=== PATIENT | female | born 1955 | race Two or more races ===

== ENCOUNTER 2020-01-12 16:26 | Emergency (ER) | payer OTHER, MEDICARE ==
[2020-01-12] MEDS ORDERED: IBUPROFEN 600 MG TABLET PO ONE (17:56)
[2020-01-12] MEDS ORDERED: ACETAMINOPHEN 325 MG TABLET PO ONE (17:56)
[2020-01-12] MEDS ORDERED: DIAZEPAM 5 MG TABLET PO ONE (17:56)
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
[2020-01-12 19:28] VITALS: BP 114/66
== END 2020-01-12 19:27 | disposition home or self-care (01) ==
LOC: ER 16:26
DX: S20.211A Contusion of right front wall of thorax, initial encounter (principal); M54.9 Dorsalgia, unspecified; M54.2 Cervicalgia; R07.81 Pleurodynia; R07.9 Chest pain, unspecified; M43.6 Torticollis; V87.7XXA Person injured in collision between other specified motor vehicles (traffic), initial encounter; Z79.899 Other long term (current) drug therapy
CPT/HCPCS: 71046; 99283